=== PATIENT | male | born 1990 | race Caucasian/White ===

== ENCOUNTER 2017-01-27 11:24 | Emergency (ER) | payer BC, OTHER ==
[~2017-01-27] VITALS: Ht 180.3 cm; Wt 61.2 kg
[2017-01-27 11:41] VITALS: BP 114/83
[2017-01-27] MEDS ORDERED: DIPH25CA79 PO (11:54)
--- NOTE | 2017-01-27 11:54 | ED Cough/URI ---
General Chief Complaint: Cough/Cold/Flu Symptoms Stated Complaint: CONGESTION/EAR DISCOMFORT/COUGH Nursing Triage Note: PT CO OF COLD COUGH AND FLU SX SINCE SATURDAY AND HAS EAR ACHE IN L EAR Source: patient Exam Limitations: no limitations History of Present Illness Time seen by provider: 11:53 Initial Comments 26-year-old male patient presents to the emergency department with complaints of cough, nasal congestion, chest congestion, and sore throat beginning Saturday. Does complain of left ear pain today. Timing/Duration: constant, other (2-3 days) Severity/Quality: productive cough (yellow and clear) Prior Episodes/Possible Cause: no prior episodes Modifying Factors: Worse With Coughing Allergies and Home Medications Allergies Coded Allergies: No Allergy Information Available (Unverified , 11/02/11) Home Medications Benzonatate 200 Mg Capsule, 200 MG PO TID PRN for COUGH, #30 Ref 0 Prescribed by: CRISTIAN BARNES on 01/27/17 1207 Cephalexin 500 Mg Capsule, 500 MG PO TID, #21 Ref 0 Prescribed by: CRISTIAN BARNES on 01/27/17 1207 Diphenhydramine HCl 25 Mg Capsule, 50 MG PO EVERY 4 HOURS PRN for PRN, (Reported ) Constitutional: No chills, No fever, malaise EENTM: ear pain (left ear pain), nose congestion, see HPI, throat pain, No nose pain, No throat swelling Respiratory: cough, phlegm, No short of breath, No stridor, No wheezing Cardiovascular: no symptoms reported Gastrointestinal: No abdominal pain, No constipation, No diarrhea, No loss of appetite, No nausea, No vomiting Genitourinary: no symptoms reported Musculoskeletal: no symptoms reported Skin: no symptoms reported Psychiatric/Neurological: No Symptoms Reported All Other Systems Reviewed Negative Unless Noted: Yes (Negative excepted noted.) Past Siyprvm-Xzogts-Raazbb Hx Patient Social History Alcohol Use: Denies Use Recreational Drug Use: No Smoking Status: Never a Smoker Recent Foreign Travel: No Contact w/Someone Who Travel: No Recent Infectious Disease Expo: No Surgeries HX Surgeries: Yes (inguinal hernia repair) Respiratory Hx Respiratory Disorders: No Cardiovascular Hx Cardiac Disorders: No Neurological Hx Neurological Disorders: No Reproductive System Hx Reproductive Disorders: No Genitourinary Hx Genitourinary Disorders: No Gastrointestinal Hx Gastrointestinal Disorders: No Musculoskeletal Hx Musculoskeletal Disorders: No Endocrine Hx Endocrine Disorders: No HEENT HX ENT Disorders: No Blood Transfusions Hx Blood Disorders: No Reviewed Nursing Assessment Reviewed/Agree w Nursing PMH: Yes Family Medical History Significant Family History: No Pertinent Family Hx Physical Exam Vital Signs Vital Sign - Last 12Hours 01/27/17 11:41 Temp 98.5 Pulse 99 Resp 20 B/P (MAP) 114/83 Pulse Ox 96 Capillary Refill : Less Than 3 Seconds General Appearance: WD/WN, no apparent distress HEENT: PERRL/EOMI, TMs normal, pharyngeal erythema, No tonsillar exudate Neck: full range of motion, supple, other (mild anterior cervical lymphadenopathy, tender to palpation.) Respiratory: lungs clear, normal breath sounds, no respiratory distress Cardiovascular: normal peripheral pulses, regular rate, rhythm, no edema, no murmur Gastrointestinal: soft, No distended Neurologic/Psychiatric: alert, normal mood/affect, oriented x 3 Skin: normal color, warm/dry Progress/Results/Core Measures Results/Orders Vital Signs/I&O Vital Sign - Last 12Hours 01/27/17 11:41 Temp 98.5 Pulse 99 Resp 20 B/P (MAP) 114/83 Pulse Ox 96 Blood Pressure Mean: 93 Departure Communication Progress Notes Patient seen and evaluated. Plan for discharge to home with oral antibiotics and Tessalon Perles. Impression Impression: Primary Impression: Upper respiratory infection Qualified Codes: J06.9 - Acute upper respiratory infection, unspecified Disposition: HOME, SELF-CARE Condition: Improved Departure-Patient Inst. Decision time for Depature: 12:05 Referrals: NO,LOCAL PHYSICIAN (PCP/Family) Primary Care Physician Patient Instructions: Bacterial Upper Respiratory Infection, Adult (DC) Add. Discharge Instructions: All discharge instructions reviewed with patient and/or family. Voiced understanding. Medications as instructed. [id number] throat lozenges and sprays as needed for throat pain. Saline nasal spray and Afrin nasal spray [id number] as needed for nasal congestion. Drink plenty of fluids. Cool humidifier. Follow-up with your primary care physician for recheck this week if no improvement in symptoms. Return to the emergency department for worsened symptoms or any other concerns. Scripts Cephalexin (Cephalexin) 500 Mg Capsule 500 MG PO TID, #21 CAP 0 Refills Prov: CRISTIAN BARNES 01/27/17 Benzonatate (Benzonatate) 200 Mg Capsule 200 MG PO TID Y for COUGH, #30 CAP 0 Refills Prov: CRISTIAN BARNES 01/27/17 Work/School Note: Local Medical Staff Listing CRISTIAN BARNES Jan 27, 2017 11:53
[2017-01-27] MEDS ORDERED: BENZ200C51 PO (12:07)
[2017-01-27] MEDS ORDERED: CEPH500C PO (12:07)
== END 2017-01-27 12:15 | disposition home or self-care (01) ==
LOC: EDUNIT# 11:24 → ER 11:26
DX: J06.9 Acute upper respiratory infection, unspecified (principal)
CPT/HCPCS: 99282